=== PATIENT | male | born 1950 | race Caucasian/White ===

== ENCOUNTER → 2020-09-18 | Outpatient (CLI) | payer MEDICARE, OTHER ==
[~2020-09-18] MED LIST: SERTRALINE HCL100 MG PO; TRAMADOL HCL50 MG PO; ULORIC 40 MG TA40 MG PO; ZESTORETIC 10-1 EACH PO; ZYRTEC10 MG PO
[2020-09-18 08:08] LABS: RED BLOOD COUNT 5.07 M/UL (4.20-5.50); WHITE BLOOD COUNT 5.7 K/UL (4.5-11.0)
[2020-09-18 08:34] LABS: BUN/CREATININE RATIO 19 (0-10)
== END ==
LOC: LAB 07:46
PROVIDERS: Internal Medicine
DX: E78.5 Hyperlipidemia, unspecified (principal)
CPT/HCPCS: 36415; 80048; 80061; 80076; 84443; 85025